=== PATIENT | female | born 1960 | race Caucasian/White ===

== ENCOUNTER → 2018-08-14 13:39 | Outpatient (CLI) | payer OTHER, SELFPAY ==
[2018-08-14 13:55] LABS: Basophils % 0.6 % (0.1-2.0); Eosinophils # 0.3 K/mm3 (0.0-0.4); Eosinophils % 3.8 % (0.1-12.0); Hematocrit 47.5 % (37.0-47.0); Hemoglobin 15.2 g/dL (12.2-16.2); Lymphocytes # 2.5 K/mm3 (0.7-4.5); Lymphocytes % 33.4 % (10-50); Mean Corpuscular Hemoglobin 30.7 pg (27.0-31.2); Mean Corpuscular Volume 95.9 fl (81-99); Mean Platelet Volume 8.5 fl (7.4-10.4); Monocytes # 0.3 K/mm3 (0.1-1.0); Monocytes % 3.6 % (1.7-9.3); Neutrophils # 4.5 K/mm3 (1.8-7.8); Neutrophils % 58.7 % (37.0-80.0); Platelet Count 342 K/mm3 (142-424); Red Blood Count 4.95 M/mm3 (4.20-5.40); Red Cell Distribution Width 12.5 % (11.5-17.5); White Blood Count 7.6 K/mm3 (4.8-10.8)
[2018-08-14 14:41] LABS: Alanine Aminotransferase 34 U/L (12-78); Albumin Level 4.4 gm/dL (3.4-5.0); Albumin/Globulin Ratio 1.2 (1.1-1.8); Alkaline Phosphatase 94 U/L (46-116); Anion Gap 15.3 mEq/L (5-15); Aspartate Amino Transferase 24 U/L (15-37); Bilirubin,Total 0.8 mg/dL (0.2-1.0); Blood Urea Nitrogen 9 mg/dL (7-18); Calcium 9.6 mg/dL (8.5-10.1); Carbon Dioxide 26 mmol/L (21.0-32.0); Chloride 102 mmol/L (98-107); Chol/HDL Ratio 2.1 (1-3.5); Cholesterol 224 mg/dL (140-200); Creatinine,Serum 0.63 mg/dL (0.55-1.02); Estimated Glomerular Filt Rate 98 ml/min (>60); Free T4 (Free Thyroxine) 1.05 ng/dl (0.76-1.46); GFR (African American) 119 ML/MIN (>60); Globulin 3.6 gm/dl (1.3-3.2); Glucose 103 mg/dL (74-106); HDL Cholesterol 105 mg/dL (29-89); LDL Cholesterol 89 mg/dL (0-130); Potassium 4.3 mmoL/L (3.5-5.1); Sodium 139 mmol/L (136-145); Thyroid Stimulating Hormone 0.58 uIU/ml (0.358-3.740); Triglycerides 148 mg/dL (30-200); VLDL Cholesterol 30 mg/dL (0-40)
[2018-08-15 09:17] LABS: Vitamin D 25 Hydroxy 22.9 ng/mL (30.0-100.0)
== END ==
PROVIDERS: Visit Provider Emergency Medicine
DX: R53.83 Other fatigue (principal)
CPT/HCPCS: 80053; 80061; 82652; 84439; 84443; 85025

== ENCOUNTER → 2018-09-01 10:44 | Outpatient (CLI) | payer OTHER, SELFPAY ==
--- NOTE | 2018-09-01 11:22 | MM_ITS ---
MM Dig screening mamm BI w/CAD CAD Screening INDICATION: Baseline screening for breast cancer ORDERING PHYSICIAN: Josue Valdez MD PATIENT AGE: 58 years COMPARISON: None TECHNIQUE: Standard CC and MLO images were obtained. R2 CAD reviewed. FINDINGS: There is average fibroglandular tissue. Asymmetric increased density is present in the right retroareolar region seen on both CC and MLO views. Spot compression view and ultrasound recommended. Left breast has an unremarkable appearance. IMPRESSION: Indeterminate nodularity right retroareolar region for which additional views are recommended. Suggest spot compression views and ultrasound of right breast. BI-RADS Category: 0 Need Additional Imaging Evaluation RECOMMENDED FOLLOW-UP: IMM - IMMEDIATE FOLLOW-UP RECOMMENDED (A letter has been sent to the patient regarding results of the study.)
== END ==
PROVIDERS: PCP Emergency Medicine; Visit Provider Emergency Medicine
DX: Z12.31 Encounter for screening mammogram for malignant neoplasm of breast (principal)
CPT/HCPCS: 77067

== ENCOUNTER → 2018-09-22 13:24 | Outpatient (CLI) | payer OTHER, SELFPAY ==
--- NOTE | 2018-09-22 13:26 | XR_ITS ---
XR cervical spine 3V Ordering Physician: Judith Marroquin Patient Age: 58 years: Female HISTORY: ITS.REASON: pain numbness and tingling down right arm. Shoulder pain. Possible injury related to work TECHNIQUE: 3 images: AP lateral and open-mouth odontoid view COMPARISON : Previous thoracic spine series. FINDINGS C1-C2 relationships appear normal. Dens intact. The C-spine with normal alignment and disc spaces are fairly well maintained. Only perhaps some mild posterior hypertrophic ridging suggested at C4/5 seen on today's study as well as 2015 lateral swimmer's view of the lower C-spine. Scant Early anterior marginal osteophytes C4/5 & C5-6 Suggestion of very subtle degenerative facet changes C-spine bilaterally. Apices the lungs are clear bilaterally. IMPRESSION: .. Cervical spine intact . Normal alignment. Disc spaces fairly well maintained. . Only suggestion minor degenerative changes , with minimal spondylosis at C4/5 suggested
--- NOTE | 2018-09-22 13:26 | XR_ITS ---
XR shoulder RT min 2V Ordering Physician: Judith Marroquin Patient Age: 58 years: Female HISTORY: ITS.REASON: pain TECHNIQUE: 3 views right shoulder. COMPARISON : No FINDINGS Right shoulder intact with no fracture nor dislocation evident. Glenohumeral joint is intact AC joint intact. Scapula unremarkable. Slight roughening at the cap of the greater tuberosity is nonspecific but can reflect degenerative changes impingement sequela. Are there impingement symptoms? Upper right ribs and right lung apex clear IMPRESSION: . Right shoulder intact.. . No acute fracture nor dislocation Slight roughening at the cap of the greater tuberosity can be reflection mild degenerative changes & impingement Sequela.
== END ==
PROVIDERS: PCP Emergency Medicine; Visit Provider Nurse Practitioner Family
DX: R52 Pain, unspecified (principal)
CPT/HCPCS: 72040; 73030

== ENCOUNTER → 2018-09-25 13:45 | Outpatient (CLI) | payer OTHER, SELFPAY ==
--- NOTE | 2018-09-25 13:46 | US_ITS ---
MM Dig mamm DX unilat RT CAD, US breast RT complete Ordering Physician: CASANDRA Gardner Patient Age: 58 years Female COMPARISON: . August 2018 bilateral screening mammogram INDICATION: Retroareolar density on recen screening t mammogram -------- DIAGNOSTIC RIGHT MAMMOGRAM with Spot views TECHNIQUE: CC, rolled cc, MLO, 90 degree, Spot views performed The spot views again show some mild asymmetric tissue at the lateral superior retroareolar region . This seems to compress out on the additional images.. It becomes less evident for example on the rolled cc views. It becomes less evident including from the MLO to the 90 degree spot view. ------ ULTRASOUND RIGHT BREAST including axillary survey ultrasound entire right breast was performed including axillary survey./cc No areas of concern. The retroareolar region unremarkable. . No ductal prominence. No cyst. No suspicious solid nodule. There are some scattered benign-appearing axillary lymph nodes. IMPRESSION: Additional spot views today decreased concern regarding any significant finding right breast, retroareolar region. . subsequent Ultrasound reveals no areas of concern either . Bilateral follow-up in August 2019 recommended. To resume annual scheduled BI-RADS Category: 2 Benign Finding(s) RECOMMENDED FOLLOW-UP: 1YR 1 YEAR FOLLOW-UP A letter has been sent to the patient regarding results of the study.)
== END ==
PROVIDERS: PCP Physician Assistant; Visit Provider Physician Assistant
DX: R92.8 Other abnormal and inconclusive findings on diagnostic imaging of breast (principal)
CPT/HCPCS: 76641; 77065

== ENCOUNTER → 2020-05-22 11:30 | Outpatient (CLI) | payer OTHER, SELFPAY ==
--- NOTE | 2020-05-22 11:52 | XR_ITS ---
PROCEDURE: XR CHEST 2V CLINICAL HISTORY: Pre op Cough COMPARISON: No exams were available for comparison FINDINGS: The cardiomediastinal silhouette and pulmonary vascularity are within normal limits. The lungs are clear without infiltrates, suspicious nodules, or pleural effusions. There are degenerative changes in the thoracic spine with mild kyphosis in the lower thoracic spine. IMPRESSION: No acute findings. Dictated by: Josue Katz MD 05/22/2020 13:44 Josue Katz MD in [place] 05/22/2020 13:44
[2020-05-22 12:38] LABS: Basophils % 0.3 % (0.1-2.0); Eosinophils # 0.3 K/mm3 (0.0-0.4); Hematocrit 46.8 % (37.0-47.0); Hemoglobin 16.1 g/dL (12.2-16.2); Lymphocytes % 23.9 % (10-50); Mean Corpuscular HGB Conc 34.4 g/dL (31.8-35.4); Mean Corpuscular Hemoglobin 32.7 pg (27.0-31.2); Mean Corpuscular Volume 95.1 fl (81-99); Mean Platelet Volume 7.6 fl (7.4-10.4); Monocytes # 0.2 K/mm3 (0.1-1.0); Monocytes % 2.5 % (1.7-9.3); Neutrophils # 5.7 K/mm3 (1.8-7.8); Neutrophils % 70.2 % (37.0-80.0); Platelet Count 345 K/mm3 (142-424); Red Blood Count 4.92 M/mm3 (4.20-5.40); Red Cell Distribution Width 12.6 % (11.5-17.5); White Blood Count 8.2 K/mm3 (4.8-10.8)
[2020-05-22 12:49] LABS: Activated Partial Thrombo Time 23.8 seconds (23.6-34.0); INR 1.05 (0.9-1.1); Prothrombin Time 10.8 seconds (9.4-11.8)
[2020-05-22 13:06] LABS: Chloride 104 mmol/L (98-107); Sodium 143 mmol/L (136-145)
[2020-05-22 13:07] LABS: Potassium 4.3 mmoL/L (3.5-5.1)
[2020-05-22 13:09] LABS: Alanine Aminotransferase 37 U/L (12-78); Albumin Level 4.9 g/dl (3.5-5.0); Albumin/Globulin Ratio 1.5 (1.1-1.8); Alkaline Phosphatase 105 U/L (38-126); Anion Gap 15.3 mEq/L (5-15); Aspartate Amino Transferase 50 U/L (14-36); Bilirubin,Total 1.1 mg/dl (0.2-1.3); Blood Urea Nitrogen 5 mg/dl (7-17); Carbon Dioxide 28 mmol/L (22.0-30.0); Cholesterol 275 mg/dl (140-200); Estimated Glomerular Filt Rate 86 ml/min (>60); GFR (African American) 104 ML/MIN (>60); Globulin 3.3 g/dL (1.3-3.2); Total Protein,Serum 8.2 g/dl (6.3-8.2); Triglycerides 199 mg/dl (30-150); VLDL Cholesterol 40 mg/dL (0-40)
[2020-05-22 13:10] LABS: Calcium 10.5 mg/dl (8.4-10.2); Glucose 124 mg/dl (74-100)
[2020-05-22 13:17] LABS: Chol/HDL Ratio 2.6 (1-3.5); HDL Cholesterol 106 mg/dl (40-60)
[2020-05-22 13:21] LABS: Direct LDL Cholesterol 138.48 mg/dL (100-129)
[2020-05-22 13:28] LABS: 25-OH Vitamin D, Total 37.5 ng/mL (30-100); T4 (Thyroxine) 8.1 ug/dl (5.53-11.0)
[2020-05-22 13:41] LABS: Thyroid Stimulating Hormone 0.57 uIU/mL (0.465-4.68)
[2020-05-22 18:20] LABS: Hemoglobin A1C 5.4 % (4.0-6.0)
[2020-05-24 18:16] LABS: Prealbumin 31 mg/dL (10-36)
== END ==
PROVIDERS: PCP Emergency Medicine; Visit Provider Physician Assistant
DX: M25.551 Pain in right hip (principal); E11.9 Type 2 diabetes mellitus without complications; Z01.818 Encounter for other preprocedural examination
CPT/HCPCS: 36415; 71046; 80053; 80061; 82306; 83036; 84134; 84436; 84443; 85025; 85610; 85730

== ENCOUNTER → 2020-05-27 14:52 | Outpatient (CLI) | payer OTHER, SELFPAY ==
--- NOTE | 2020-05-27 15:11 | ECG_ITS ---
APPROVED REPORT Exam: Resting ECG HR:76 bpm ECG Measurements Heart Rate 76 AXES CO 166 P 52 QRSd 74 QRS 34 QT 378 T 57 QTc 425 <Conclusion> Normal sinus rhythm Poor R Wave Progression Otherwise a normal ECG Electronically signed by : Clayton Lion, 05/28/2020 08:44:37
== END ==
PROVIDERS: PCP Emergency Medicine; Visit Provider Physician Assistant
DX: Z01.818 Encounter for other preprocedural examination (principal); M25.551 Pain in right hip
CPT/HCPCS: 93005

== ENCOUNTER → 2021-12-25 08:46 | Outpatient (CLI) | payer OTHER, SELFPAY | PROVIDERS: PCP Emergency Medicine; Visit Provider Emergency Medicine | DX: R10.9 Unspecified abdominal pain (principal) | CPT/HCPCS: 87086 ==

== ENCOUNTER 2022-04-01 09:00 | Outpatient (RCR) | payer OTHER, SELFPAY ==
--- NOTE | 2022-04-01 10:40 | HMH.PTOPEV ---
PT Outpatient Evaluation Rehab PT Outpatient Evaluation Start: 04/01/22 09:29 Freq: Status: Active Protocol: Document 04/01/22 09:29 NORM (Rec: 04/01/22 10:40 NORM [id number]) Electronically Signed By Eagle Reilly, PT 04/01/22 09:29 Outpatient Therapy Subjective History Subjective History Pt reports h/o chronic LBP for ~40 yrs, however reports exacerbation of LBP for the last ~2months. Pt reports midline LBP with referred pain into bilateral lumbar paraspinal mm. Pt reports no radicular s/s, however, does report intermittent episodes of referred pain into ribcage area. Pt reports previous lumbar xrays have revealed OA, DDD. Chief Complaint Pain,Stiff Symptom Type Ache,Sharp,Dull,Stabbing Symptoms Relieved By Rest/Positioning,Heat Symptoms Aggravated By Standing,Bending/Stooping, Physical Activity,Twisting, Walking,Lifting Prior Functional Limitations Lifting,Housework,Standing, Bending/Stooping Current Functional Limitations Lifting,Housework,Standing, Bending/Stooping Symptom Description Constant but Variable Level of pain today (0-10) 7 Pain scale - at its best (0-10) 2 Pain scale - at its worst (0-10) 9 Lumbopelvic Eval Posture Thoracic Spine Posture Standing Position Flattened Lumbar Spine Posture Standing Position Flattened Assistive device Assistive Devices None / NA Gait Observation General Gait Pattern Observation Antalgic Gait Palapation tenderness bilateral thoracic spinal tenderness Yes: 1-2/4 lumbar spinal tenderness Yes: 3/4 paraspinal tenderness Yes: 3/4 buttock tenderness Yes: 2-3/4 Lumbar/Sacral Palpation Findings Tenderness,Trigger Point, Muscle Guarding Accessory Movement L-spine Vertebrae Accessory Movements Central P/A [place] that Elicit Symptoms L2 bilateral L3 bilateral L4 bilateral L5 bilateral Range of Motion Lumbar Spine Active Flexion Range of 0-40 Motion (degrees) Lumbar Spine Active Extension Range of 0-15 Motion (degrees) Left Lumbar Spine Lateral Flexion Active 0-20 Range of Motion (degrees) Right Lumbar Spine Lateral Flexion 0-25 Active Range of Motion (degrees)
== END 2022-04-01 09:05 | disposition home or self-care (01) ==
LOC: PT 09:00
PROVIDERS: PCP Emergency Medicine; Visit Provider Emergency Medicine
DX: M54.50 Low back pain, unspecified (principal)
CPT/HCPCS: 97010; 97012; 97014; 97163; G0283

== ENCOUNTER → 2022-05-21 10:15 | Outpatient (CLI) | payer OTHER, SELFPAY ==
[2022-05-21 19:32] LABS: Amphetamine/Metha Screen,Urine Negative ng/ml (<1000)
[2022-05-21 19:33] LABS: Barbiturates Screen,Urine Negative ng/ml (<200); Benzodiazepines Screen,Urine Negative ng/ml (<200)
[2022-05-21 19:34] LABS: Cannabinoid Screen,Urine Negative ng/ml (<50)
[2022-05-21 19:35] LABS: Cocaine Screen,Urine Negative ng/ml (<300)
[2022-05-21 19:36] LABS: Methadone Screen,Urine Negative ng/ml (<300); Opiate Screen,Urine Positive ng/ml (<300)
[2022-05-21 19:37] LABS: Phencyclidine Screen,Urine Negative ng/ml (<25)
== END ==
PROVIDERS: PCP Emergency Medicine; Visit Provider Emergency Medicine
DX: Z79.899 Other long term (current) drug therapy (principal)
CPT/HCPCS: 80305

== ENCOUNTER → 2022-08-13 18:34 | Outpatient (CLI) | payer OTHER, SELFPAY ==
[2022-08-13 18:24] LABS: Amphetamine/Metha Screen,Urine Negative ng/ml (<1000); Barbiturates Screen,Urine Negative ng/ml (<200)
[2022-08-13 18:25] LABS: Benzodiazepines Screen,Urine Negative ng/ml (<200)
[2022-08-13 18:26] LABS: Cannabinoid Screen,Urine Negative ng/ml (<50); Cocaine Screen,Urine Negative ng/ml (<300)
[2022-08-13 18:27] LABS: Methadone Screen,Urine Negative ng/ml (<300)
[2022-08-13 19:29] LABS: Opiate Screen,Urine Negative ng/ml (<300); Phencyclidine Screen,Urine Negative ng/ml (<25)
== END ==
PROVIDERS: PCP Emergency Medicine; Visit Provider Emergency Medicine
DX: Z79.899 Other long term (current) drug therapy (principal)
CPT/HCPCS: 80305

== ENCOUNTER → 2023-03-01 09:51 | Outpatient (CLI) | payer OTHER, SELFPAY ==
--- NOTE | 2023-03-01 10:05 | XR_ITS ---
FINAL REPORT CLINICAL HISTORY: left shoulder pain that radiates down arm with activity FINDINGS: LEFT SHOULDER SERIES Three views of the left shoulder were obtained. There is no acute fracture or dislocation. There are mild degenerative changes of the AC joint. There is no soft tissue abnormality. IMPRESSION: Mild degenerative changes of the AC joint. Reviewed, Interpreted and Dictated by Valentín Ridley III, MD Transcribed by Sylvia Lemus Authenticated and [facility]
--- NOTE | 2023-03-01 10:05 | XR_ITS ---
FINAL REPORT CLINICAL HISTORY: right hip pain, hip replacement 2 yrs ago, concern for hernia FINDINGS: RIGHT HIP SERIES Three views of the right hip were obtained. There is no acute fracture or dislocation. There are soft tissue calcifications adjacent to the right hip. There are postoperative changes from a right hip arthroplasty. IMPRESSION: Soft tissue calcifications adjacent to the right hip. Postoperative changes from right hip arthroplasty. Reviewed, Interpreted and Dictated by Valentín Ridley III, MD Transcribed by Sylvia Lemus Authenticated and . [facility]
[2023-03-01 10:12] LABS: Basophils % 0.5 % (0.1-2.0); Eosinophils # 0.2 K/mm3 (0.0-0.4); Eosinophils % 2.5 % (0.1-12.0); Hematocrit 46.8 % (37.0-47.0); Hemoglobin 14.8 g/dL (12.2-16.2); Lymphocytes # 2.2 K/mm3 (0.7-4.5); Lymphocytes % 29.1 % (10-50); Mean Corpuscular HGB Conc 31.6 g/dL (31.8-35.4); Mean Corpuscular Hemoglobin 30.9 pg (27.0-31.2); Mean Corpuscular Volume 97.8 fl (81-99); Mean Platelet Volume 7.9 fl (7.4-10.4); Monocytes # 0.3 K/mm3 (0.1-1.0); Monocytes % 3.3 % (1.7-9.3); Neutrophils # 4.9 K/mm3 (1.8-7.8); Neutrophils % 64.6 % (37.0-80.0); Platelet Count 272 K/mm3 (142-424); Red Blood Count 4.78 M/mm3 (4.20-5.40); Red Cell Distribution Width 12.5 % (11.5-17.5); White Blood Count 7.5 K/mm3 (4.8-10.8)
[2023-03-01 10:47] LABS: Chloride 105 mmol/L (98-107); Potassium 4.4 mmoL/L (3.5-5.1); Sodium 140 mmol/L (136-145)
[2023-03-01 10:50] LABS: Anion Gap 13.4 mEq/L (5-15); Blood Urea Nitrogen 10 mg/dl (7-17); Calcium 8.8 mg/dl (8.4-10.2); Carbon Dioxide 26 mmol/L (22.0-30.0); Estimated Glomerular Filt Rate 85 ml/min (>60); GFR (African American) 103 ML/MIN (>60); Glucose 94 mg/dl (74-100)
== END ==
PROVIDERS: PCP Emergency Medicine; Visit Provider Surgery
DX: K40.90 Unilateral inguinal hernia, without obstruction or gangrene, not specified as recurrent (principal); M25.512 Pain in left shoulder; M25.551 Pain in right hip
CPT/HCPCS: 36415; 73030; 73502; 80048; 85025

== ENCOUNTER 2023-04-04 06:00 | Day surgery (SDC) | payer OTHER, SELFPAY ==
[2023-03-31 09:49] VITALS: BMI 27.9
[2023-04-04] VITALS (13 sets, daily range): BP systolic 125–168; BP diastolic 60–98; PULSE 77–88; RESP 16–24; TEMP 36.1–37.5; O2SAT 94–96
[2023-04-04 06:36] LABS: Basophils # 0.1 K/mm3 (0-0.2); Basophils % 0.7 % (0.1-2.0); Eosinophils # 0.2 K/mm3 (0.0-0.4); Eosinophils % 2.2 % (0.1-12.0); Hematocrit 45.8 % (37.0-47.0); Hemoglobin 14.6 g/dL (12.2-16.2); Mean Corpuscular HGB Conc 31.9 g/dL (31.8-35.4); Mean Corpuscular Hemoglobin 31.2 pg (27.0-31.2); Mean Corpuscular Volume 97.9 fl (81-99); Mean Platelet Volume 7.7 fl (7.4-10.4); Monocytes # 0.3 K/mm3 (0.1-1.0); Monocytes % 3.8 % (1.7-9.3); Neutrophils # 4.6 K/mm3 (1.8-7.8); Neutrophils % 56.3 % (37.0-80.0); Platelet Count 285 K/mm3 (142-424); Red Blood Count 4.67 M/mm3 (4.20-5.40); Red Cell Distribution Width 12.6 % (11.5-17.5); White Blood Count 8.1 K/mm3 (4.8-10.8)
[2023-04-04 06:46] LABS: Anion Gap 11.7 mEq/L (5-15); Blood Urea Nitrogen 8 mg/dl (7-17); Calcium 9.1 mg/dl (8.4-10.2); Carbon Dioxide 26 mmol/L (22.0-30.0); Chloride 109 mmol/L (98-107); Creatinine Clearance Estimated 106 mL/min (50-200); Estimated Glomerular Filt Rate 85 ml/min (>60); GFR (African American) 103 ML/MIN (>60); Glucose 90 mg/dl (74-100); Potassium 3.7 mmoL/L (3.5-5.1); Sodium 143 mmol/L (136-145)
--- NOTE | 2023-04-04 06:55 | EXP.ANES.CKL ---
[facility] Disclaimer: The information contained in this section may have been updated after the patient was seen, as this information can be updated by other users. Medical History History of lipoma Vitamin D deficiency (~08/15/18) Surgical History History of section History of colonoscopy History of right hip replacement Family History Other Family history of cancer Social History Smoking Status: Never smoker alcohol intake: current substance use type: denies use current occupational status: previously employed Travel in the last 8 weeks: None household members: spouse housing: house current occupational exposures/hazards: No caffeine: No [facility] Anesthesia Checklist Patient Identification Patient Identification: Arm Band and Family Structural Data Admitted From: Home Planned Operative Procedure/s: Right Inguina Repair Consent for Planned Operative Procedure(s) Verified: Yes Verified Documents: Surgical Consent and History and Physical NPO Status Verified Time NPO: 00:00 Additional verifications Patient : No Anesthesia Reactions: No Hx Blood Transfusions: No Blood Transfusion Reaction: No Cephalosporin Allergy: No Previous Colonoscopy: Yes Airway Assessment C-Spine Mobility Assessed: Yes TMJ Mobility Assessed: Yes Dentition: Good Dentition Neurological Assessment Level of Consciousness: Awake, Alert, Appropriate and Follows Commands Hx Seizures: No Numbness or tingling in extremities: No Anesthesia Plan Anesthesia Risk discussed: Yes ASA Class: I Anesthesia Type: General
--- NOTE | 2023-04-04 07:00 | EXP.GEN.HP ---
HPI HPI HPI: Patient presents for RIGHT inguinal hernia. She is a 62-year-old female whom I have seen in the past for excision of lipoma and also for a colonoscopy in 2019. She had undergone a right hip replacement about 2 years ago. She states that for the past couple of months she has had pain in the right groin area. She states it is exacerbated when she lifts her grandkids. It also is worse when she is coughing or sneezing. She has an unusual sensation of moving in the area. She has some discomfort. She was seen in the office several weeks ago and diagnosed with unilateral right inguinal hernia. The options were discussed and plan was made to proceed with open right inguinal hernia repair. In the preoperative area interestingly the patient states that she has had diarrhea for several months described as watery frequent stools occurring several times daily with fecal urgency. [facility] Disclaimer: The information contained in this section may have been updated after the patient was seen, as this information can be updated by other users. Medical History History of lipoma Vitamin D deficiency (~08/15/18) Surgical History History of section History of colonoscopy History of right hip replacement Family History Family history of cancer Social History Smoking Status: Never smoker alcohol intake: current substance use type: denies use current occupational status: previously employed Travel in the last 8 weeks: None household members: spouse housing: house current occupational exposures/hazards: No caffeine: No Review of Systems Review of Systems Review of systems:: pertinent systems reviewed and negative unless documented below Meds Home Medications and Allergies Home Medications Medication Instructions Recorded Confirmed Type clonazepam 0.5 mg tablet (Klonopin) 0.5 mg PO BID mood 03/31/23 04/04/23 History trazodone 50 mg tablet See Rx Instructions .Route 03/31/23 04/04/23 History .COMPLEX sleep New Prescriptions to Start Prescriptions: Allergies Allergy/AdvReac Type Severity Reaction Status Date / Time latex Allergy Mild Verified 04/04/23 06:20 Exam Data for Last 24 hours Vital signs and Labs for Last 24 Hours: Temp Pulse Resp BP Pulse Ox O2 Del Method 99.5 F 77 18 126/85 96 Room Air 04/04/23 06:21 04/04/23 06:21 04/04/23 06:21 04/04/23 06:21 04/04/23 06:21 04/04/23 06:21 Laboratory Results - last 24 hr 04/04/23 06:28: WBC 8.1, RBC 4.67, Hgb 14.6, Hct 45.8, MCV 97.9, MCH 31.2, MCHC 31.9, RDW 12.6, Plt Count 285, MPV 7.7, Neut % (Auto) 56.3, Lymph % (Auto) 37.0, [place] % (Auto) 3.8, Eos % (Auto) 2.2, Baso % (Auto) 0.7, Neut # (Auto) 4.6, Lymph # (Auto) 3.0, [place] # (Auto) 0.3, Eos # (Auto) 0.2, Baso # (Auto) 0.1, Sodium 143, Potassium 3.7, Chloride 109 H, Carbon Dioxide 26, Anion Gap 11.7, BUN 8, Creatinine 0.70, Estimated Creat Clear 106, Estimated GFR 85, Est GFR ( Amer) 103, Glucose 90, Calcium 9.1 Constitutional Constitutional: no acute distress *Routine HEENT Exam Head: Present normocephalic Eye: Present EOMI and PERRL ENT: Present mucous membranes moist *Routine Neck Exam Neck: Present supple; Absent lymphadenopathy *Routine Respiratory Exam Respiratory: Present CTA bilaterally *Routine Cardiovascular Exam Cardiovascular: Present RRR *Routine Abdominal Exam Abdominal: Present soft and normoactive bowel sounds; Absent tenderness Comments: Right inguinal hernia *Routine Rectal Exam Rectal:: deferred *Routine Genitalia Exam Genitalia:: deferred *Routine Extremities Exam Extremities: Absent cyanosis, clubbing or edema *Routine Skin Exam Skin: Present warm; Absent rash *Routine Neurological Exam Neurological:
--- NOTE | 2023-04-04 09:29 | EXP.ANES.I ---
[facility] Anesthesia Record Part I Anesthesia Record I Intake, IV Amount: 1,100 Estimated blood loss (mL): 15 Urine output (mL): 100 Blood Products used (#): none Blood Pressure: 161/85 SaO2: 96 Pulse Rate: 88 Respiratory Rate: 24 Temperature: 97 F Patient is:: Drowsy and Stable Stable to PACU at:: 09:25
--- NOTE | 2023-04-04 09:35 | EXP.OP.NOTE ---
Date of procedure: 04/04/23 Pre-op Diagnosis:: Right inguinal hernia Post-op Diagnosis:: Same Procedure performed:: Open repair of right inguinal hernia with placement of large Bard prefix mesh plug with onlay mesh Surgeon:: Valentín Soto MD Anesthesia: ISABEL Estimated blood loss (mL): 15 Clinical Note:: Patient presents for RIGHT inguinal hernia. She is a 62-year-old female whom I have seen in the past for excision of lipoma and also for a colonoscopy in 2019. She had undergone a right hip replacement about 2 years ago. She states that for the past couple of months she has had pain in the right groin area. She states it is exacerbated when she lifts her grandkids. It also is worse when she is coughing or sneezing. She has an unusual sensation of moving in the area. She has some discomfort. She was seen in the office several weeks ago and diagnosed with unilateral right inguinal hernia. The options were discussed and plan was made to proceed with open right inguinal hernia repair. In the preoperative area interestingly the patient states that she has had diarrhea for several months described as watery frequent stools occurring several times daily with fecal urgency. Operative findings:: She had a moderately large indirect hernia with large amount of herniated preperitoneal fat through internal ring. Cord structures including the round ligament were very attenuated and anatomy was difficult to discern. Operative note:: Patient was taken the operating room. She was positioned in supine position. General anesthesia was induced. Lower abdomen and perineum were prepped and draped in the standard surgical fashion after placement of Gaviria catheter. She was positioned in slight Trendelenburg position. Oblique skin incision was made in the right inguinal area superior to landmarks identifying the inguinal ligament. Dissection was carried down through subcutaneous tissues and Lyndsay's fascia using electrocautery. There were several branching subcutaneous vessels which were cauterized. External oblique muscle was cleaned free. Exposure was achieved. External oblique muscle was opened along the length of its fibers. Exposure was achieved. The inguinal nerve was preserved and protected. There was herniated preperitoneal fat as an indirect hernia. There were several branching vessels and structures of the inguinal contents were rather attenuated including the round ligament and surrounding structures. Given this, to aid in repair of the hernia of the round ligament was ligated with #1 Vicryl tie with the intervening segment excised. A few branching vessels were ligated or clipped. This was sent off as specimen. Herniated preperitoneal fat was reduced. Large sized Bard prefix mesh plug was inserted into the site of the hernia defect and intervening leaves of the mesh were sutured to shelving edge of the inguinal ligament and to transversalis fascia with several interrupted 2-0 PDS sutures to secure it in place. The onlay mesh was secured into the inguinal floor suturing it to the Romie's ligament with a running 2-0 PDS along the shelving edge of the inguinal ligament. It was secured superiorly and medially to the transversalis fascia with interrupted 2-0 PDS horizontal mattress sutures. Inguinal nerve was returned to the normal anatomic position. The 2 leaves of the mesh were secured to 1 another with 2-0 PDS. Repair. Adequate. Wound was irrigated. Is good hemostasis. Local anesthetic was infiltrated deeply and then superficially as well as for an inguinal nerve block. Lyndsay's fascia was closed with a running 2-0 Vicryl. Skin was closed with 4-0 Monocryl in a running subcuticular fashion. Steri-Strips and dressing was applied. Condition: stable Disposition: PACU Complications:: None immediately apparent
--- NOTE | 2023-04-04 11:00 | P.PNANES_ITS ---
[facility] Anesthesia Record Part II Anesthesia Record Part II Discharge Time: 10:14 Destination: Surgical Day Care (OP Surgery) PACU nurse assessment reviewed?: Yes Patient Condition:: Good Anesthesia Complications:: None Swallowing reflex intact?: Yes Cyanosis?: No Blood Pressure: 146/61 Pulse Rate: 85 Temperature: 97.8 F Mental Status: Alert & Oriented Pain level:: 3 Nausea and/or vomitting:: None Intake, IV Amount: 0
[2023-04-04 17:05] LABS: Microscopic,Cath URINE MICROSCOPIC (MICROSCOPIC)
[2023-04-04 17:06] LABS: Appearance,Urine/Cath CLEAR (Clear); Bilirubin,Cath Negative (Negative); Blood, Urine/Cath Negative (Negative); Color,Urine/Cath YELLOW (Yellow); Glucose,Urine/Cath (UA) Negative (Negative); Ketones,Urine/Cath Negative (Negative); Leukocyte Esterase,Cath Negative (Negative); Nitrate,Cath Negative (Negative); Protein,Urine/Cath Negative (Negative); Specific Gravity, Urine/Cath 1.025 (1.005-1.030); Urobilinogen,Cath 0.2 EU/dl (0.2)
== END 2023-04-04 11:00 | disposition home or self-care (01) ==
PROVIDERS: PCP Emergency Medicine; Visit Provider Surgery
PROC: (CPT 49505; principal; 2023-04-04 07:30)
DX: K40.90 Unilateral inguinal hernia, without obstruction or gangrene, not specified as recurrent (principal)
CPT/HCPCS: 49505; 80048; 81001; 85025; 96374; J2405

== ENCOUNTER 2023-09-09 10:18 | Outpatient (CLI) | payer OTHER, SELFPAY ==
[2023-09-09 12:37] LABS: Amphetamine/Metha Screen,Urine Negative ng/ml (<1000); Barbiturates Screen,Urine Negative ng/ml (<200); Benzodiazepines Screen,Urine Negative ng/ml (<200); Cannabinoid Screen,Urine Negative ng/ml (<50); Cocaine Screen,Urine Negative ng/ml (<300); Methadone Screen,Urine Negative ng/ml (<300); Opiate Screen,Urine Positive ng/ml (<300); Phencyclidine Screen,Urine Negative ng/ml (<25)
[2023-09-15 08:24] LABS: Alprazolam Negative (Cutoff=100); Benzodiazepines Positive ng/mL (Cutoff=100); Clonazepam Positive (.); Clonazepam Confirm 174 ng/mL (Cutoff=100); Flurazepam Negative (Cutoff=100); Lorazepam Negative (Cutoff=100); Midazolam Negative (Cutoff=100); Temazepam Negative (Cutoff=100); Triazolam Negative (Cutoff=100)
== END 2023-09-09 23:59 ==
LOC: LAB.DROPOF 09-10 10:19
PROVIDERS: PCP Internal Medicine; Visit Provider Internal Medicine
DX: Z79.899 Other long term (current) drug therapy (principal)
CPT/HCPCS: 80307; 80346

== ENCOUNTER 2023-10-05 20:44 | Outpatient (CLI) | payer OTHER, SELFPAY ==
[2023-10-05 19:00] LABS: Chol/HDL Ratio 2.5 (1-3.5); Cholesterol 206 mg/dl (140-200); HDL Cholesterol 81 mg/dl (40-60); Triglycerides 103 mg/dl (30-150); VLDL Cholesterol 21 mg/dL (0-40)
[2023-10-05 19:11] LABS: Direct LDL Cholesterol 99.11 mg/dL (100-129)
== END 2023-10-05 23:59 ==
LOC: LAB.DROPOF 20:45
PROVIDERS: PCP Internal Medicine; Visit Provider Internal Medicine
DX: E78.2 Mixed hyperlipidemia (principal)
CPT/HCPCS: 80061